=== PATIENT | male | born 1970 ===

== ENCOUNTER 2025-03-02 07:49 | Outpatient (CLI) | payer OTHER | END 2025-03-02 07:51 | disposition home or self-care (01) | LOC: TOM 07:49 | DX: N20.0 Calculus of kidney (principal) ==

== ENCOUNTER 2025-03-12 12:14 | Outpatient (CLI) | payer OTHER | END 2025-03-12 12:23 | disposition home or self-care (01) | LOC: RAD 12:14 | DX: I48.91 Unspecified atrial fibrillation (principal); N20.0 Calculus of kidney ==